=== PATIENT | male | born 1965 | race African-American/Black ===

== ENCOUNTER 2025-05-08 18:02 | Emergency (ER) | payer MEDICAID ==
[~2025-05-08] VITALS: Ht 177.8 cm; Wt 113.0 kg
[2025-05-08 18:04] VITALS: O2SAT 98
[2025-05-08 18:06] VITALS: BP 172/108; PULSE 72; RESP 16; TEMP 36.8; O2SAT 98
[2025-05-08 19:41] LABS: BASOPHILS % 0.5 % (0.0-2.0); EOSINOPHILS % 3.1 % (0.0-5.0); HEMATOCRIT. 39.6 % (42.0-52.0); HEMOGLOBIN. 13.4 g/dL (14.0-18.0); LYMPHOCYTES % 25.8 % (20.0-50.0); MEAN PLATELET VOLUME 8.6 fl (7.4-10.4); MONOCYTES % 9.3 % (2.0-8.0); NEUTROPHILS % 61.3 % (40.0-76.0); PLATELET 202 x1000/uL (130-400); RED BLOOD CELL COUNT 4.46 mill/uL (4.7-6.1); RED CELL DISTRIBUTION WIDTH 13.6 % (11.6-14.6)
[2025-05-08 19:56] LABS: CREATININE 1.0 mg/dL (0.6-1.3); TROPONIN I HIGH SENSITIVITY 24 ng/L (3.0-53); UREA NITROGEN BLOOD 9 mg/dL (9-23)
[2025-05-08 19:58] LABS: ASPARTATE AMINOTRANSFERASE 27 IU/L (<34); BILIRUBIN DIRECT 0.3 mg/dL (<=3.0); BILIRUBIN TOTAL 0.9 mg/dL (0.1-1.0); PROTEIN TOTAL 6.6 g/dL (6.0-8.3)
== END 2025-05-08 21:36 | disposition left against medical advice (07) ==
LOC: ER 18:02 → EDBEDREQTM 21:03 → EDBEDREQ 21:03 → ER 21:36 → CMPBEDREQ 05-09 07:53
DX: R06.02 Shortness of breath (principal); I48.91 Unspecified atrial fibrillation; I10 Essential (primary) hypertension; Z79.899 Other long term (current) drug therapy; Z98.890 Other specified postprocedural states
CPT/HCPCS: 36415; 71045; 80048; 80076; 84484; 85025; 93005; 99285

== ENCOUNTER 2025-06-29 11:35 | Emergency (ER) | payer MEDICAID ==
[~2025-06-29] VITALS: Ht 182.9 cm; Wt 100.0 kg
[2025-06-29 11:36] VITALS: O2SAT 99
[2025-06-29 12:05] LABS: BASOPHILS % 0.7 % (0.0-2.0); EOSINOPHILS % 5.9 % (0.0-5.0); HEMATOCRIT. 39.7 % (42.0-52.0); HEMOGLOBIN. 13.4 g/dL (14.0-18.0); LYMPHOCYTES % 23.4 % (20.0-50.0); MEAN PLATELET VOLUME 8.3 fl (7.4-10.4); MONOCYTES % 8.8 % (2.0-8.0); NEUTROPHILS % 61.2 % (40.0-76.0); PLATELET 185 x1000/uL (130-400); RED BLOOD CELL COUNT 4.61 mill/uL (4.7-6.1); RED CELL DISTRIBUTION WIDTH 14.0 % (11.6-14.6)
[2025-06-29 12:15] LABS: CREATININE 1.5 mg/dL (0.6-1.3); UREA NITROGEN BLOOD 14.0 mg/dL (9-23)
[2025-06-29 12:16] LABS: TROPONIN I HIGH SENSITIVITY 10 ng/L (3.0-53)
[2025-06-29 13:39] VITALS: BP 117/67; PULSE 63; RESP 18; TEMP 37; O2SAT 100
== END 2025-06-29 13:39 | disposition home or self-care (01) ==
LOC: ER 11:35 → CANBEDREQ 13:27 → ER 13:39
DX: E86.0 Dehydration (principal); R53.1 Weakness; I11.0 Hypertensive heart disease with heart failure; I50.9 Heart failure, unspecified; I48.91 Unspecified atrial fibrillation
CPT/HCPCS: 36415; 71045; 80048; 84484; 85025; 93005; 99285